=== PATIENT | male | born 1960 | race Two or more races ===

== ENCOUNTER 2017-01-21 16:44 | Inpatient (IN) | payer MEDICAID ==
[~2017-01-21] VITALS: Ht 172.7 cm; Wt 97.1 kg
[2017-01-21 17:12] LABS: BASOPHILS % (AUTO) 0.7 % (0.0-2.0); EOSINOPHILS # (AUTO) 0.1 K/uL (0.0-0.7); HEMATOCRIT 46.2 % (40-50); LYMPHOCYTES # (AUTO) 2.8 K/UL (0.8-4.8); LYMPHOCYTES % (AUTO) 39.8 % (20.5-51.5); MEAN CORPUSCULAR HEMOGLOBIN 28.7 UUG (27.0-31.0); MEAN CORPUSCULAR HGB CONC 33 g/dL (32.0-37.0); MEAN CORPUSCULAR VOLUME 88.1 FL (82.0-92.0); MONOCYTES # (AUTO) 0.5 K/UL (0.1-1.30); MONOCYTES % (AUTO) 6.7 % (0.0-11.0); NEUTROPHILS # (AUTO) 3.6 K/UL (1.8-8.9); NEUTROPHILS % (AUTO) 50.8 % (38.5-71.5); PLATELET COUNT (AUTO) 228 K/UL (150-450); RED BLOOD CELL COUNT(AUTO) 5.24 MIL/UL (4.7-6.1)
[2017-01-21 17:24] LABS: CREATININE 0.9 mg/dL (0.6-1.3); POTASSIUM 3.9 mmol/L (3.5-5.1)
[2017-01-21] MEDS ORDERED: PANTOPRAZOLE SODIUM IV 40 MG in IV DEXTROSE 5% 100 ML IV ONE (17:30)
[2017-01-21] MEDS ORDERED: MORPHINE SULFATE 4 MG/1 ML DISP.SYRIN IV ONE (17:30)
[2017-01-21] MEDS ORDERED: ONDANSETRON IV *ER 4 MG/2 ML VIAL IV ONE (17:30)
[2017-01-21] MEDS ORDERED: hydrALAZINE HCL 20 MG/1 ML VIAL IV ONE (17:30)
[2017-01-21] MEDS ORDERED: MORPHINE SULFATE 4 MG/1 ML DISP.SYRIN ONE (17:41)
[2017-01-21] MEDS ORDERED: hydrALAZINE HCL 20 MG/1 ML VIAL ONE (17:41)
[2017-01-21 17:44] LABS: BILIRUBIN,DIRECT 0.1 mg/dL (0.0-0.2); BILIRUBIN,TOTAL 0.4 mg/dL (0.2-1.0); TOTAL PROTEIN, SERUM 8.1 g/dL (6.4-8.2)
[2017-01-21] MEDS ORDERED: ONDANSETRON 4 MG/2 ML VIAL ONE (17:50)
[2017-01-21] MEDS ORDERED: PANTOPRAZOLE SODIUM 40 MG VIAL ONE (17:50)
--- NOTE | 2017-01-21 19:01 | NUR ---
pt transfered to floor in stable condition. pt says feels better, transfer to floor delay due to ct head results
--- NOTE | 2017-01-21 19:10 | NUR ---
PT RECEIVED FROM ED VIA [facility] [employer]. PT IS A/OX4. CROATIAN/CYPRIOT SPEAKING. ABLE TO MAKE NEEDS KNOWN. BP SLIGHTLY ELEVATED AT 152/94. WILL ADMINISTER BP MEDS ORDERED. IN NO ACUTE DISTRESS. PT C/O OF HEADACHE 10/03. WILL ADMIN TYLENOL ORDERED. IV INTACT AND PATENT. PT ORIENTED TO ROOM. SAFETY MEASURES IMPLEMENTED. CALL LIGHT WITHIN REACH.
[2017-01-21 19:47] VITALS: BP 152/94
[2017-01-21] MEDS ORDERED: ONDANSETRON 4 MG/2 ML VIAL IV PRN (20:00)
[2017-01-21] MEDS ORDERED: MORPHINE SULFATE 2 MG/1 ML DISP.SYRIN IV PRN ×2 (20:00)
[2017-01-21] MEDS ORDERED: NITROGLYCERIN 0.4 MG/TAB BOTTLE SL PRN (20:00)
[2017-01-21] MEDS ORDERED: LORAZEPAM 0.5 MG TABLET PO PRN (20:00)
[2017-01-21] MEDS ORDERED: LORAZEPAM 1 MG TABLET PO PRN (20:30)
[2017-01-21] MEDS: ACETAMINOPHEN 325 MG TABLET PO PRN (20:46)
[2017-01-21] MEDS: CARVEDILOL 25 MG TABLET PO SCH (20:46)
[2017-01-21] MEDS ORDERED: CARVEDILOL 3.125 MG TABLET PO SCH (21:00)
[2017-01-22 00:09] VITALS: BP 116/73
[2017-01-22 04:57] VITALS: BP 114/75
--- NOTE | 2017-01-22 06:15 | NUR ---
END OF SHIFT NOTES. PT SLEPT WELL THROUGHOUT SHIFT. IN STABLE CONDITION. BP WNL. HEADACHE RELIEVED STATED BY PT. SINUS CHARLEEN 47-56 ON THE TELE MONITOR. IV INTACT AND PATENT. ALL NEEDS ATTENDED. SAFETY MAINTAINED. CALL LIGHT WITHIN REACH.
[2017-01-22 06:58] LABS: BASOPHILS % (AUTO) 0.5 % (0.0-2.0); EOSINOPHILS # (AUTO) 0.2 K/uL (0.0-0.7); EOSINOPHILS % (AUTO) 2.8 % (0.0-7.0); HEMATOCRIT 44.3 % (36.7-47.1); LYMPHOCYTES % (AUTO) 36.6 % (20.5-51.5); MEAN CORPUSCULAR HGB CONC 34 g/dL (32.5-36.3); MEAN CORPUSCULAR VOLUME 88.6 fL (73.0-96.2); MONOCYTES # (AUTO) 0.4 K/uL (2.0-10.0); MONOCYTES % (AUTO) 7.4 % (0.0-11.0); NEUTROPHILS # (AUTO) 2.9 K/uL (1.8-8.9); NEUTROPHILS % (AUTO) 52.7 % (38.5-71.5); PLATELET COUNT (AUTO) 219 K/uL (152-348); WHITE BLOOD COUNT (AUTO) 5.5 K/uL (3.6-10.2)
[2017-01-22 07:33] LABS: PHOSPHOROUS 4.1 mg/dL (2.5-4.9); POTASSIUM 4.2 mmol/L (3.5-5.1)
[2017-01-22 07:47] LABS: MAGNESIUM 1.9 mg/dL (1.8-2.4)
--- NOTE | 2017-01-22 08:42 | NUR ---
PT SEEN ON ROUNDING. VITALS STABLE. NO SIGNS OF PAIN . PT AFEBRILE, BP WNL. EXPLAINED RISKS AND BENEFITS OF NOT TAKING BP MEDS. PT VERBALIZES UNDERSTANDING. WILL CONTINUE TO MONITOR.
[2017-01-22] MEDS: LISINOPRIL 10 MG TABLET PO SCH (09:08)
[2017-01-22] MEDS: CARVEDILOL 25 MG TABLET PO SCH ×2 (09:08→18:00)
[2017-01-22] MEDS: ASPIRIN 81 MG TAB.CHEW PO SCH (09:08)
[2017-01-22] MEDS: ACETAMINOPHEN 325 MG TABLET PO PRN (10:43)
--- NOTE | 2017-01-22 11:10 | NUR ---
pt complained of headache. pt given tylenol. pt encouraged to drink water and applied scd pumps. will continue to monitor.
[2017-01-22 11:18] VITALS: BP 134/83
--- NOTE | 2017-01-22 12:01 | NUR ---
UA sent. will await results
[2017-01-22 12:36] LABS: *BILIRUBIN,URIN NEGATIVE (NEGATIVE); *BLOOD, URINE Trace-intact (NEGATIVE); *CLARITY,URINE CLEAR (CLEAR); *COLOR,URINE YELLOW (YELLOW); *KETONES,URINE NEGATIVE (NEGATIVE); *PROTEIN,URINE TRACE (NEGATIVE); *UROBILINOGEN,URINE 0.2 E.U./dl (NORMAL); LEUKOCYTE ESTERASE ,URINE TRACE (NEGATIVE); NITRITE, URINE NEGATIVE (NEGATIVE); UGLUCOSE NEGATIVE (NEGATIVE)
[2017-01-22 12:53] LABS: *AMPHETAMINE, URINE NEGATIVE (NEGATIVE); *BARBITURATE, URINE NEGATIVE (NEGATIVE); *CANNABINOID, URINE NEGATIVE (NEGATIVE); *COCCAINE, URINE NEGATIVE (NEGATIVE); *OPIATE, URINE POSITIVE (NEGATIVE); *PHENCYCLIDINE SCREEN,URINE NEGATIVE (NEGATIVE)
[2017-01-22 13:29] LABS: BACTERIA,URINE NONE SEEN /HPF (NONE SEEN); MUCUS,URINE MODERATE /LPF (0-FEW); SQUAMOUS EPITHELIAL CELL,UR FEW /HPF (NONE SEEN); WBC,URINE 20-50 /HPF (0-3)
[2017-01-22 15:07] VITALS: BP 100/58
--- NOTE | 2017-01-22 19:05 | NUR ---
pt stable throughout the day. bp slightly elevated and given bp meds as prescribed. insulin given as per sliding scale. pt assisted to the bathroom and ate meals with adequate hydration. no loc changes. pt needs reinforcement on safety. will endorse new orders to security shift manager nurse. Addendum: 01/22/17 at 1907 by JIA HE RN wrong patient
--- NOTE | 2017-01-22 19:20 | NUR ---
RECEIVED IN BED ALERT ORIENTED NO SOB NO CHEST PAIN NOTED, NO COMPLAIN OF PAIN, CALL LIGHT WITHIN REACH. CONT TO MONITOR.
[2017-01-22] MEDS ORDERED: SIMVASTATIN 40 MG TABLET PO SCH (21:00)
[2017-01-22 21:32] VITALS: BP 102/49
[2017-01-23 00:12] VITALS: BP 96/57
--- NOTE | 2017-01-23 05:25 | NUR ---
PATIENT SLEPT MOST OF THE NIGHT, NO SOB NO CHEST PAIN NOTED, VOIDING WELL, NO COMPLAIN OF PAIN, CONT TO MONITOR.
--- NOTE | 2017-01-23 07:15 | NUR ---
PT SLEEPING IN BED, AWAKENS TO NAME, DENIES CHEST PAIN AT THIS TIME. ALL SAFETY AND COMFORT MEASURES ATTENDED TO, CALL LIGHT IN REACH WILL CONTINUE TO MONITOR
[2017-01-23] MEDS: CARVEDILOL 25 MG TABLET PO SCH (08:28)
[2017-01-23] MEDS: ASPIRIN 81 MG TAB.CHEW PO SCH (08:28)
[2017-01-23] MEDS: LISINOPRIL 10 MG TABLET PO SCH (08:29)
[2017-01-23 12:01] VITALS: BP 119/66
[2017-01-23] MEDS ORDERED: LISI10TA5 PO (12:15)
[2017-01-23] MEDS ORDERED: SIMV40TA5 PO (12:15)
[2017-01-23] MEDS ORDERED: CARV25TA2 PO (12:15)
[2017-01-23] MEDS ORDERED: ASPI81TA31 PO (12:15)
--- NOTE | 2017-01-23 13:30 | NUR ---
discharge protocol followed, iv removed with no redness or irritation noted. discharge education provided, pt verbalized understanding all belongings accounted for and sent with pt. pt left via wheelchair in private car with staff.
== END 2017-01-23 13:30 | disposition home or self-care (01) | DRG 199 ==
LOC: ER 16:44 → TELE 18:58 → MED 01-23 11:20
PROVIDERS: ADMIT Internal Medicine; ATTEND Internal Medicine
DX: I16.0 Hypertensive urgency (principal); E88.81 Metabolic syndrome and other insulin resistance; I11.9 Hypertensive heart disease without heart failure; I20.9 Angina pectoris, unspecified; E11.9 Type 2 diabetes mellitus without complications; E78.5 Hyperlipidemia, unspecified; Z87.442 Personal history of urinary calculi; Z91.128 Patient's intentional underdosing of medication regimen for other reason; T46.4X6A Underdosing of angiotensin-converting-enzyme inhibitors, initial encounter; Y92.89 Other specified places as the place of occurrence of the external cause; Z88.0 Allergy status to penicillin; G43.909 Migraine, unspecified, not intractable, without status migrainosus
CPT/HCPCS: 36415; 70030-TC; 70450; 71010; 80307; 83690; 83735; 84100; 85025; 85610; 85730; 93005; 93307; A4663; C9113; J0360; J2270; J2405